=== PATIENT | female | born 1995 | race Caucasian/White ===

== ENCOUNTER 2019-02-25 18:17 | Inpatient (IN) | payer OTHER ==
[2019-02-25] MEDS ORDERED: DEXTROSE 5%-0.45% NACL 1,000 ML IV (21:00)
[2019-02-25] MEDS ORDERED: ONDANSETRON 4 MG INJ IV (21:00)
[2019-02-25] MEDS ORDERED: NACL 0.9% 3 ML SYG IV (21:00)
[2019-02-25] MEDS: DEXTROSE 5%-0.45% NACL 1,000 ML IV (22:14)
[2019-02-25] MEDS: KETOROLAC 30 MG INJ IV (22:14)
[2019-02-26] MEDS: traMADol 50 MG TAB PO (03:18)
[2019-02-26] MEDS: DEXTROSE 5%-0.45% NACL 1,000 ML IV ×3 (06:12→22:20)
[2019-02-26] MEDS: KETOROLAC 30 MG INJ IV ×3 (06:14→21:37)
[2019-02-26 06:20] LABS: ADD MAN DIFF? NO
[2019-02-26 06:25] LABS: WHITE BLOOD COUNT 6.3 10^3/ul (4.8-10.8)
[2019-02-26 06:25] LABS: BASOPHILS % 0.5 % (0.0-2.0); EOSINOPHILS # 0.5 10^3/ul (0.0-0.5); EOSINOPHILS % 7.5 % (0.0-7.0); HEMATOCRIT 34.2 % (37.0-47.0); HEMOGLOBIN 10.9 g/dl (12.0-16.0); LYMPHOCYTES # 2.7 10^3/ul (0.8-2.9); LYMPHOCYTES % 42.4 % (15.0-51.0); MEAN CORPUSCULAR HEMOGLOBIN 29.1 pg (29.0-33.0); MEAN CORPUSCULAR HGB CONC 31.9 g/dl (32.0-37.0); MEAN CORPUSCULAR VOLUME 91.2 fl (82.0-101.0); MEAN PLATELET VOLUME 9.2 fl (7.4-10.4); MONOCYTE # 0.6 10^3/ul (0.3-0.9); MONOCYTES % 9.3 % (0.0-11.0); NEUTROPHIL # 2.5 10^3/ul (1.6-7.5); NEUTROPHILS % 40.1 % (39.0-77.0); PLATELET COUNT 255 10^3/UL (140-415); RED BLOOD COUNT 3.75 10^6/ul (4.20-5.40); RED CELL DISTRIBUTION WIDTH 12.8 % (11.5-14.5)
[2019-02-26] MEDS: METHADONE 10 MG TAB PO (06:51)
[2019-02-26 06:56] LABS: HEMOGLOBIN A1C 5.1 % (0-5.9)
[2019-02-26] MEDS ORDERED: METHADONE 10 MG TAB PO (07:00)
[2019-02-26 07:03] LABS: ALANINE AMINOTRANSFERASE 84 IU/L (13-69); ALBUMIN 3.1 g/dl (3.3-4.9); ALBUMIN/GLOBULIN RATIO 1.14; ALKALINE PHOSPHATASE 73 IU/L (42-121); ANION GAP 6 (5-13); ASPARTATE AMINO TRANSFERASE 59 IU/L (15-46); BILIRUBIN,INDIRECT 0.2 mg/dl (0-1.1); BILIRUBIN,TOTAL 0.2 mg/dl (0.2-1.3); BLOOD UREA NITROGEN 9 mg/dl (7-20); CALCIUM 8.6 mg/dl (8.4-10.2); CARBON DIOXIDE 28 mmol/L (21-31); CHLORIDE 104 mmol/L (97-110); CHOL/HDL RATIO 2.7 RATIO; CHOLESTEROL 127 mg/dl (100-200); CREATININE 0.61 mg/dl (0.44-1.00); Estimated GFR > 60 mL/min (>60); GLUCOSE 98 mg/dl (70-220); HDL CHOLESTEROL 47 mg/dl (33-83); LDL CHOLESTEROL,CALCULATED 70 mg/dl; LIPASE 27 U/L (23-300); PHOSPHORUS 4.1 mg/dl (2.5-4.9); POTASSIUM 4.3 mmol/L (3.5-5.1); SODIUM 138 mmol/L (135-144); TOTAL PROTEIN 5.8 g/dl (6.1-8.1); TRIGLYCERIDES 52 mg/dl (0-149)
[2019-02-26] MEDS: AL HYDROX/MG HYDROX/SIMETH 30 ML CUP PO (12:56)
[2019-02-26] MEDS: LORAZEPAM 2 MG INJ IV (13:11)
[2019-02-26] MEDS ORDERED: ONDANSETRON 4 MG INJ IV ×2 (16:30→17:30)
[2019-02-26] MEDS ORDERED: MIDAZOLAM 1 MG/ML 2 ML INJ IV (17:30)
[2019-02-26] MEDS ORDERED: FENTAnyl 50 MCG/ML VIAL IV ×3 (17:30)
[2019-02-26] MEDS: NICOTINE (21 MG/24 HR) PATCH TRANSDERM (22:21)
[2019-02-27] MEDS: traMADol 50 MG TAB PO ×2 (02:31→17:13)
[2019-02-27 05:14] LABS: ADD MAN DIFF? NO
[2019-02-27 05:21] LABS: BASOPHILS % 0.4 % (0.0-2.0); EOSINOPHILS # 0.5 10^3/ul (0.0-0.5); EOSINOPHILS % 6.6 % (0.0-7.0); HEMOGLOBIN 10.4 g/dl (12.0-16.0); LYMPHOCYTES # 2.3 10^3/ul (0.8-2.9); LYMPHOCYTES % 31.5 % (15.0-51.0); MEAN CORPUSCULAR HEMOGLOBIN 29.5 pg (29.0-33.0); MEAN CORPUSCULAR HGB CONC 32.5 g/dl (32.0-37.0); MEAN CORPUSCULAR VOLUME 90.7 fl (82.0-101.0); MEAN PLATELET VOLUME 9.4 fl (7.4-10.4); MONOCYTE # 0.6 10^3/ul (0.3-0.9); MONOCYTES % 8.6 % (0.0-11.0); NEUTROPHIL # 3.9 10^3/ul (1.6-7.5); NEUTROPHILS % 52.8 % (39.0-77.0); PLATELET COUNT 249 10^3/UL (140-415); RED BLOOD COUNT 3.53 10^6/ul (4.20-5.40); RED CELL DISTRIBUTION WIDTH 12.5 % (11.5-14.5)
[2019-02-27 05:21] LABS: WHITE BLOOD COUNT 7.3 10^3/ul (4.8-10.8)
[2019-02-27] MEDS: METHADONE 10 MG TAB PO (05:42)
[2019-02-27] MEDS: DEXTROSE 5%-0.45% NACL 1,000 ML IV ×2 (05:43→15:21)
[2019-02-27 05:48] LABS: ALANINE AMINOTRANSFERASE 95 IU/L (13-69); ALBUMIN/GLOBULIN RATIO 1.15; ALKALINE PHOSPHATASE 65 IU/L (42-121); ANION GAP 7 (5-13); ASPARTATE AMINO TRANSFERASE 58 IU/L (15-46); BILIRUBIN,INDIRECT 0.2 mg/dl (0-1.1); BILIRUBIN,TOTAL 0.2 mg/dl (0.2-1.3); BLOOD UREA NITROGEN 10 mg/dl (7-20); CALCIUM 8.4 mg/dl (8.4-10.2); CARBON DIOXIDE 28 mmol/L (21-31); CHLORIDE 103 mmol/L (97-110); CREATININE 0.64 mg/dl (0.44-1.00); Estimated GFR > 60 mL/min (>60); GLUCOSE 120 mg/dl (70-220); POTASSIUM 4.1 mmol/L (3.5-5.1); SODIUM 138 mmol/L (135-144); TOTAL PROTEIN 5.6 g/dl (6.1-8.1)
[2019-02-27 06:26] LABS: HEPATITIS B SURFACE ANTIGEN NEGATIVE (NEGATIVE)
[2019-02-27 06:44] LABS: HEPATITIS C VIRAL ANTIBODY NEGATIVE (NEGATIVE)
[2019-02-27] MEDS: MAGNESIUM HYDROXIDE 30ML CUP PO (08:30)
[2019-02-27] MEDS: KETOROLAC 30 MG INJ IV ×2 (13:20→21:39)
[2019-02-27 14:53] LABS: IRON 63 ug/dl (35-150)
[2019-02-27 15:02] LABS: % IRON SATURATION 19 % SAT (22-52); TOTAL IRON BINDING CAPACITY 335 ug/dl (241-421)
[2019-02-27] MEDS: PANTOPRAZOLE (EC) 40 MG TAB PO (15:21)
[2019-02-27] MEDS: METOCLOPRAMIDE 10 MG INJ IV (17:13)
[2019-02-27] MEDS: SUCRALFATE (100 MG/ML) 10ML CUP PO ×2 (17:14→22:15)
[2019-02-27] MEDS: NICOTINE (21 MG/24 HR) PATCH TRANSDERM (22:17)
[2019-02-28] MEDS: METOCLOPRAMIDE 10 MG INJ IV ×4 (00:51→19:05)
[2019-02-28] MEDS: DEXTROSE 5%-0.45% NACL 1,000 ML IV ×3 (00:57→15:26)
[2019-02-28 06:00] LABS: ALANINE AMINOTRANSFERASE 82 IU/L (13-69); ALBUMIN 3.2 g/dl (3.3-4.9); ALBUMIN/GLOBULIN RATIO 1.18; ALKALINE PHOSPHATASE 67 IU/L (42-121); ANION GAP 7 (5-13); ASPARTATE AMINO TRANSFERASE 47 IU/L (15-46); BILIRUBIN,INDIRECT 0.2 mg/dl (0-1.1); BILIRUBIN,TOTAL 0.2 mg/dl (0.2-1.3); BLOOD UREA NITROGEN 7 mg/dl (7-20); CALCIUM 8.6 mg/dl (8.4-10.2); CARBON DIOXIDE 27 mmol/L (21-31); CHLORIDE 104 mmol/L (97-110); CREATININE 0.63 mg/dl (0.44-1.00); Estimated GFR > 60 mL/min (>60); GLUCOSE 93 mg/dl (70-220); POTASSIUM 4.1 mmol/L (3.5-5.1); SODIUM 138 mmol/L (135-144); TOTAL PROTEIN 5.9 g/dl (6.1-8.1)
[2019-02-28] MEDS: METHADONE 10 MG TAB PO (06:22)
[2019-02-28] MEDS: PANTOPRAZOLE (EC) 40 MG TAB PO (06:23)
[2019-02-28] MEDS: SUCRALFATE (100 MG/ML) 10ML CUP PO ×4 (09:14→20:45)
[2019-02-28] MEDS: NICOTINE (21 MG/24 HR) PATCH TRANSDERM (09:14)
[2019-02-28] MEDS: traMADol 50 MG TAB PO (09:17)
[2019-02-28] MEDS: PROPOFOL 20 ML (12:55)
[2019-02-28] MEDS: LIDOCAINE 2% (SDV) 5 ML INJ (12:55)
[2019-02-28] MEDS: MIDAZOLAM 1 MG/ML 2 ML INJ (12:56)
[2019-02-28] MEDS: SOD FERRIC GLUC COMPLX 125 MG in SOD CHLORIDE 0.9% 100 ML IVPB (15:57)
[2019-03-01] MEDS: METOCLOPRAMIDE 10 MG INJ IV ×3 (01:23→11:51)
[2019-03-01] MEDS: PANTOPRAZOLE (EC) 40 MG TAB PO (06:31)
[2019-03-01] MEDS: METHADONE 10 MG TAB PO (06:31)
[2019-03-01] MEDS: DEXTROSE 5%-0.45% NACL 1,000 ML IV ×3 (06:32→16:41)
[2019-03-01] MEDS: SUCRALFATE (100 MG/ML) 10ML CUP PO ×4 (08:37→21:56)
[2019-03-01] MEDS: LORAZEPAM 1 MG TAB PO (17:05)
[2019-03-01] MEDS: METOCLOPRAMIDE 10 MG TAB PO (17:05)
[2019-03-02] MEDS: PANTOPRAZOLE (EC) 40 MG TAB PO (06:22)
[2019-03-02] MEDS: METOCLOPRAMIDE 10 MG TAB PO ×4 (06:22→17:10)
[2019-03-02] MEDS: METHADONE 10 MG TAB PO (06:24)
[2019-03-02] MEDS: SUCRALFATE (100 MG/ML) 10ML CUP PO ×3 (09:00→17:10)
[2019-03-02] MEDS: DEXTROSE 5%-0.45% NACL 1,000 ML IV (10:59)
[2019-03-02 12:03] LABS: MITOCHONDRIAL TB NEGATIVE (NEGATIVE); SMOOTH MUSCLE AB SCREEN NEGATIVE (NEGATIVE)
[2019-03-02 13:07] LABS: ADD MAN DIFF? NO
[2019-03-02 13:09] LABS: WHITE BLOOD COUNT 9.3 10^3/ul (4.8-10.8)
[2019-03-02 13:09] LABS: BASOPHIL # 0.1 10^3/ul (0.0-0.1); BASOPHILS % 0.5 % (0.0-2.0); EOSINOPHILS # 0.5 10^3/ul (0.0-0.5); EOSINOPHILS % 5.3 % (0.0-7.0); HEMATOCRIT 34.5 % (37.0-47.0); HEMOGLOBIN 11.1 g/dl (12.0-16.0); LYMPHOCYTES # 2.4 10^3/ul (0.8-2.9); LYMPHOCYTES % 25.5 % (15.0-51.0); MEAN CORPUSCULAR HEMOGLOBIN 29.3 pg (29.0-33.0); MEAN CORPUSCULAR HGB CONC 32.2 g/dl (32.0-37.0); MEAN PLATELET VOLUME 9.1 fl (7.4-10.4); MONOCYTE # 0.8 10^3/ul (0.3-0.9); MONOCYTES % 8.3 % (0.0-11.0); NEUTROPHIL # 5.6 10^3/ul (1.6-7.5); PLATELET COUNT 278 10^3/UL (140-415); RED BLOOD COUNT 3.79 10^6/ul (4.20-5.40)
[2019-03-02 13:32] LABS: ALANINE AMINOTRANSFERASE 72 IU/L (13-69); ALBUMIN 3.5 g/dl (3.3-4.9); ALBUMIN/GLOBULIN RATIO 1.29; ALKALINE PHOSPHATASE 73 IU/L (42-121); ANION GAP 8 (5-13); ASPARTATE AMINO TRANSFERASE 40 IU/L (15-46); BILIRUBIN,INDIRECT 0.4 mg/dl (0-1.1); BILIRUBIN,TOTAL 0.4 mg/dl (0.2-1.3); BLOOD UREA NITROGEN 10 mg/dl (7-20); CALCIUM 8.9 mg/dl (8.4-10.2); CARBON DIOXIDE 27 mmol/L (21-31); CHLORIDE 103 mmol/L (97-110); CREATININE 0.68 mg/dl (0.44-1.00); Estimated GFR > 60 mL/min (>60); GLUCOSE 97 mg/dl (70-220); POTASSIUM 3.8 mmol/L (3.5-5.1); SODIUM 138 mmol/L (135-144); TOTAL PROTEIN 6.2 g/dl (6.1-8.1)
[2019-03-02 13:36] LABS: ANA SCREEN NEGATIVE (NEGATIVE)
== END 2019-03-02 17:17 | disposition home or self-care (01) | DRG 392 ==
LOC: PP2 18:17
PROC: 0DB98ZX Excision of Duodenum, Via Natural or Artificial Opening Endoscopic, Diagnostic (ICD-10-PCS; principal; 2019-02-26 16:30)
PROC: 0DB68ZX Excision of Stomach, Via Natural or Artificial Opening Endoscopic, Diagnostic (ICD-10-PCS; 2019-02-26 16:30)
PROC: 0DB58ZX Excision of Esophagus, Via Natural or Artificial Opening Endoscopic, Diagnostic (ICD-10-PCS; 2019-02-26 16:30)
DX: K31.84 Gastroparesis (principal); F11.20 Opioid dependence, uncomplicated; K80.70 Calculus of gallbladder and bile duct without cholecystitis without obstruction; K29.70 Gastritis, unspecified, without bleeding; D64.9 Anemia, unspecified
CPT/HCPCS: 74181; 78264; 80053; 80061; 83036; 83540; 83690; 83735; 84100; 85025; 86038; 86255; 86803; 87340; 88305; 88312; 88313